=== PATIENT | male | born 2000 | race Caucasian/White ===

== ENCOUNTER 2024-07-14 16:40 | Emergency (ER) | payer SELFPAY ==
[2024-07-14] MEDS: Lidocaine 1% PF 2 ML SDV INJECT ONE (16:44)
[2024-07-14] MEDS: Diphtheria,Pertussis(Acell),Tetanus Vaccine 0.5 ML Syringe IM ONE (17:00)
== END 2024-07-14 17:30 | disposition home or self-care (01) ==
LOC: MW.ED 16:40
DX: S61.213A Laceration without foreign body of left middle finger without damage to nail, initial encounter (principal); Z23 Encounter for immunization; W26.0XXA Contact with knife, initial encounter
CPT/HCPCS: 12001; 90471; 90715; 99282; 99282-25

== ENCOUNTER 2024-07-21 10:33 | Emergency (ER) | payer SELFPAY | END 2024-07-21 13:08 | disposition home or self-care (01) | LOC: MW.ED 10:33 | DX: S69.92XA Unspecified injury of left wrist, hand and finger(s), initial encounter (principal); Z75.8 Other problems related to medical facilities and other health care; W22.8XXA Striking against or struck by other objects, initial encounter | CPT/HCPCS: 73130-26-LT; 73130-LT; 99283 ==